=== PATIENT | female | born 1980 | race Caucasian/White ===

== ENCOUNTER 2018-05-05 01:37 | Emergency (ER) | payer SELFPAY, MEDICAID | END 2018-05-05 05:57 | disposition left against medical advice (07) | LOC: FTE 01:37 | DX: I74.9 Embolism and thrombosis of unspecified artery (principal); J45.909 Unspecified asthma, uncomplicated; F17.210 Nicotine dependence, cigarettes, uncomplicated | CPT/HCPCS: 73080; 73080-RT; 76536; 93971; 99284-25 ==

== ENCOUNTER 2018-05-06 21:47 | Inpatient (IN) | payer MEDICAID, OTHER ==
[2018-05-06] MEDS ORDERED: NACL 0.9% 3 ML SYG IV (23:30)
[2018-05-06] MEDS ORDERED: DOCUSATE SODIUM 100 MG CAP PO (23:30)
[2018-05-06] MEDS ORDERED: BISACODYL (EC) 5 MG TAB PO (23:30)
[2018-05-06 23:32] LABS: ADD MAN DIFF? NO
[2018-05-06 23:40] LABS: WHITE BLOOD COUNT 9.6 10^3/ul (4.8-10.8)
[2018-05-06 23:40] LABS: BASOPHILS % 0.4 % (0.0-2.0); EOSINOPHILS # 0.2 10^3/ul (0.0-0.5); EOSINOPHILS % 2.4 % (0.0-7.0); HEMATOCRIT 31.2 % (37.0-47.0); HEMOGLOBIN 9.9 g/dl (12.0-16.0); LYMPHOCYTES # 2.5 10^3/ul (0.8-2.9); LYMPHOCYTES % 26.5 % (15.0-51.0); MEAN CORPUSCULAR HEMOGLOBIN 25.8 pg (29.0-33.0); MEAN CORPUSCULAR HGB CONC 31.7 g/dl (32.0-37.0); MEAN CORPUSCULAR VOLUME 81.5 fl (82.0-101.0); MEAN PLATELET VOLUME 8.1 fl (7.4-10.4); MONOCYTE # 0.6 10^3/ul (0.3-0.9); MONOCYTES % 6.7 % (0.0-11.0); NEUTROPHIL # 6.1 10^3/ul (1.6-7.5); NEUTROPHILS % 63.8 % (39.0-77.0); PLATELET COUNT 384 10^3/UL (140-415); RED BLOOD COUNT 3.83 10^6/ul (4.20-5.40); RED CELL DISTRIBUTION WIDTH 14.6 % (11.5-14.5)
[2018-05-06 23:57] LABS: ALANINE AMINOTRANSFERASE 29 IU/L (13-69); ALBUMIN 3.4 g/dl (3.3-4.9); ALBUMIN/GLOBULIN RATIO 0.89; ALKALINE PHOSPHATASE 120 IU/L (42-121); ANION GAP 9 (5-13); ASPARTATE AMINO TRANSFERASE 28 IU/L (15-46); BLOOD UREA NITROGEN 19 mg/dl (7-20); CALCIUM 8.8 mg/dl (8.4-10.2); CARBON DIOXIDE 29 mmol/L (21-31); CHLORIDE 99 mmol/L (97-110); Estimated GFR > 60 mL/min (>60); GLUCOSE 117 mg/dl (70-220); LIPASE 84 U/L (23-300); POTASSIUM 3.3 mmol/L (3.5-5.1); SODIUM 137 mmol/L (135-144); TOTAL PROTEIN 7.2 g/dl (6.1-8.1)
[2018-05-07] MEDS ORDERED: ENOXAPARIN 60 MG/0.6 ML SYG SC
[2018-05-07 00:14] LABS: ETHANOL < 10.0 mg/dl (0-0)
[2018-05-07] MEDS: ENOXAPARIN 60 MG/0.6 ML SYG SC ×3 (02:55→21:02)
[2018-05-07] MEDS: CLINDAMYCIN 300 MG CAP PO ×3 (05:14→22:49)
[2018-05-07 05:44] LABS: ADD MAN DIFF? NO
[2018-05-07 05:45] LABS: BASOPHIL # 0.1 10^3/ul (0.0-0.1); BASOPHILS % 0.6 % (0.0-2.0); EOSINOPHILS # 0.2 10^3/ul (0.0-0.5); EOSINOPHILS % 2.3 % (0.0-7.0); HEMATOCRIT 35.4 % (37.0-47.0); HEMOGLOBIN 10.9 g/dl (12.0-16.0); LYMPHOCYTES # 2.3 10^3/ul (0.8-2.9); LYMPHOCYTES % 26.9 % (15.0-51.0); MEAN CORPUSCULAR HEMOGLOBIN 25.2 pg (29.0-33.0); MEAN CORPUSCULAR HGB CONC 30.8 g/dl (32.0-37.0); MEAN CORPUSCULAR VOLUME 81.8 fl (82.0-101.0); MEAN PLATELET VOLUME 8.3 fl (7.4-10.4); MONOCYTE # 0.5 10^3/ul (0.3-0.9); MONOCYTES % 6.5 % (0.0-11.0); NEUTROPHIL # 5.3 10^3/ul (1.6-7.5); NEUTROPHILS % 63.5 % (39.0-77.0); PLATELET COUNT 440 10^3/UL (140-415); RED BLOOD COUNT 4.33 10^6/ul (4.20-5.40); RED CELL DISTRIBUTION WIDTH 14.7 % (11.5-14.5)
[2018-05-07 05:45] LABS: WHITE BLOOD COUNT 8.4 10^3/ul (4.8-10.8)
[2018-05-07 06:06] LABS: ALANINE AMINOTRANSFERASE 29 IU/L (13-69); ALBUMIN 3.4 g/dl (3.3-4.9); ALBUMIN/GLOBULIN RATIO 0.87; ALKALINE PHOSPHATASE 135 IU/L (42-121); ANION GAP 8 (5-13); ASPARTATE AMINO TRANSFERASE 30 IU/L (15-46); BILIRUBIN,INDIRECT 0.2 mg/dl (0-1.1); BILIRUBIN,TOTAL 0.2 mg/dl (0.2-1.3); BLOOD UREA NITROGEN 15 mg/dl (7-20); CARBON DIOXIDE 29 mmol/L (21-31); CHLORIDE 101 mmol/L (97-110); CREATININE 0.73 mg/dl (0.44-1.00); Estimated GFR > 60 mL/min (>60); GLUCOSE 106 mg/dl (70-220); POTASSIUM 3.8 mmol/L (3.5-5.1); SODIUM 138 mmol/L (135-144); TOTAL PROTEIN 7.3 g/dl (6.1-8.1)
[2018-05-07 06:38] LABS: HEMOGLOBIN A1C 5.5 % (0-5.9)
[2018-05-07] MEDS: ONDANSETRON 4 MG INJ IV (06:54)
[2018-05-07] MEDS: HYDROCODONE/APAP (10/325) TAB PO ×2 (06:54→21:12)
[2018-05-07] MEDS ORDERED: CLINDAMYCIN 300 MG CAP PO (09:00)
[2018-05-07] MEDS: DOCUSATE SODIUM 100 MG CAP PO ×2 (09:42→21:01)
[2018-05-07] MEDS: ESCITALOPRAM 10 MG TAB PO (09:42)
[2018-05-07] MEDS: NICOTINE (14 MG/24 HR) PATCH TRANSDERM (09:43)
[2018-05-07] MEDS: LORAZEPAM 2 MG INJ IV (09:55)
[2018-05-07] MEDS ORDERED: METHADONE 10 MG TAB PO (11:00)
[2018-05-07] MEDS ORDERED: LORAZEPAM 2 MG INJ IV (14:00)
[2018-05-07] MEDS: BENZTROPINE 1 MG TAB PO (17:56)
[2018-05-07] MEDS: ARIPIPRAZOLE 5 MG TAB PO (17:56)
[2018-05-07] MEDS: GABAPENTIN 100 MG CAP PO (21:02)
[2018-05-08] MEDS: CLINDAMYCIN 300 MG CAP PO ×2 (05:26→13:23)
[2018-05-08] MEDS: ENOXAPARIN 60 MG/0.6 ML SYG SC (09:34)
[2018-05-08] MEDS: METHADONE 10 MG TAB PO (09:35)
[2018-05-08] MEDS: BENZTROPINE 1 MG TAB PO (09:36)
[2018-05-08] MEDS: ESCITALOPRAM 10 MG TAB PO (09:36)
[2018-05-08] MEDS: GABAPENTIN 100 MG CAP PO (09:36)
[2018-05-08] MEDS: DOCUSATE SODIUM 100 MG CAP PO (09:36)
[2018-05-08] MEDS: ARIPIPRAZOLE 5 MG TAB PO (09:36)
[2018-05-08] MEDS: NICOTINE (14 MG/24 HR) PATCH TRANSDERM (09:37)
[2018-05-08 10:00] LABS: ADD UMIC YES; UR ASCORBIC ACID 20 mg/dL (NEGATIVE); UR BACTERIA FEW /HPF (NONE SEEN); UR BILIRUBIN (Dip) NEGATIVE (NEGATIVE); UR BLOOD (Dip) NEGATIVE (NEGATIVE); UR CALCIUM OXALATE CRYSTAL FEW /HPF (NONE SEEN); UR CLARITY CLOUDY (CLEAR); UR COLOR YELLOW (YELLOW); UR GLUCOSE (Dip) NEGATIVE (NEGATIVE); UR KETONES (Dip) NEGATIVE (NEGATIVE); UR LEUKOCYTE ESTERASE (Dip) NEGATIVE Leu/ul (NEGATIVE); UR MUCUS FEW /HPF (NONE SEEN); UR NITRITE (Dip) NEGATIVE (NEGATIVE); UR RBC 2 /HPF (0-5); UR SQUAMOUS EPITHELIAL CELL MODERATE /HPF (FEW); UR TOTAL PROTEIN (Dip) NEGATIVE (NEGATIVE); UR UROBILINOGEN (Dip) 1+ mg/dL (NEGATIVE); UR WBC 6 /HPF (0-5)
[2018-05-08 10:22] LABS: BARBITURATES Negative (NEGATIVE); BENZODIAZEPINES Negative (NEGATIVE); CANNABINOIDS Negative (NEGATIVE); COCAINE Negative (NEGATIVE)
[2018-05-08 10:28] LABS: OPIATES Positive (NEGATIVE)
[2018-05-08 10:33] LABS: AMPHETAMINE/METHAMPHETAMINE POSITIVE (NEGATIVE)
[2018-05-08] MEDS: ACETAMINOPHEN 325 MG TAB PO (10:55)
[2018-05-08 17:09] LABS: HIV 1&2 ANTIBODY NEGATIVE (NEGATIVE)
[2018-05-08 17:10] LABS: HEPATITIS C VIRAL ANTIBODY REACTIVE (NEGATIVE)
[2018-05-09] MEDS ORDERED: METHADONE 10 MG TAB PO (09:00)
== END 2018-05-08 19:20 | disposition left against medical advice (07) | DRG 300 ==
LOC: 2NE 23:19 → E/R 21:47 → 5EC 05-07 20:44
DX: I82.621 Acute embolism and thrombosis of deep veins of right upper extremity (principal); L03.113 Cellulitis of right upper limb; Z72.0 Tobacco use; F32.9 Major depressive disorder, single episode, unspecified; F15.10 Other stimulant abuse, uncomplicated; J45.909 Unspecified asthma, uncomplicated
CPT/HCPCS: 36415; 73200; 80053; 80307; 81001; 83036; 83690; 85025; 86703; 86803; 87040; 99285-25

== ENCOUNTER 2018-12-27 17:30 | Emergency (ER) | payer SELFPAY, OTHER | END 2018-12-27 18:45 | disposition left against medical advice (07) | LOC: FTE 17:30 | DX: Z53.21 Procedure and treatment not carried out due to patient leaving prior to being seen by health care provider (principal) ==